=== PATIENT | male | born 1985 | race Caucasian/White ===

== ENCOUNTER 2020-08-30 02:07 | Emergency (ER) | payer MEDICAID ==
--- NOTE | 2020-08-30 03:00 | EDM.PDOCBH ---
<Cr Colón - Last Filed: 08/30/20 05:45> ED HPI GENERAL MEDICAL PROBLEM - General Chief Complaint: Behavioral/Psych Stated Complaint: EVAL Time Seen by Provider: 08/30/20 02:54 Source of Information: Reports: Patient History Limitations: Reports: No Limitations - History of Present Illness INITIAL COMMENTS - FREE TEXT/NARRATIVE: Fransico is a 34-year-old male presenting to the emergency room for evaluation of increased psychosis, paranoia, and agitation. The patient has a history significant for autism spectrum, polysubstance abuse including heroin, methamphetamine, and benzodiazepine. He is currently medicated with BuSpar, Effexor, clonidine, Metformin, and mirtazapine. The patient has delusions that his house is occupied by somebody who is cooking methamphetamine and that they are living in a hidden section in his wall of his house. It seems like the patient is semi-estranged from his parents due to his mental health and previous transgressions with polysubstance abuse. Tonight the patient called law enforcement because he felt that the people staying in his house were trying to frame him. Law enforcement product development intern arrested the patient in brought him to long-term, however, the long-term refused to take him saying that this was likely a mental health issue and the patient was ultimately brought to the ER for evaluation. The patient was accompanied by law enforcement from [place]. Law enforcement reported to us that prior to arresting the patient, the patient was wandering around the streets of [place]. The patient states that he was at his house outside and that his dog was barking because of the people that are hiding out in his house cooking meth. Patient is very paranoid that they were going to frame him for manufacture methamphetamine because these people will place their equipment in his room to make it look like he is doing it. The patient has significant agitation, fidgeting, hand rolling, tangential speech with pressured rapid speech and profuse sweating. He also has increased rhinorrhea. The patient is here voluntary for evaluation. The patient does admit to using methamphetamine 3 days ago. He does admit to having a history of abusing marijuana, heroin, methamphetamine, and benzodiazepines. Again, patient does have a history for type 2 diabetes and autism spectrum. - Related Data Allergies Allergy/AdvReac Type Severity Reaction Status Date / Time Penicillins Allergy Cannot Verified 08/30/20 03:01 Remember [id number]-[id number] Reductase Allergy Cannot Verified 08/30/20 03:01 Inhibitor Remember Home Meds: Home Meds Mirtazapine 45 mg PO BEDTIME 08/30/20 [History] Venlafaxine [Effexor] 200 mg PO DAILY 08/30/20 [History] cloNIDine [Catapres] 0.2 mg PO BID 08/30/20 [History] metFORMIN [Glucophage] 1,000 mg PO WITHDINNER 08/30/20 [History] metFORMIN [Glucophage] 500 mg PO DAILY 08/30/20 [History] Social & Family History - Recreational Drug Use Recreational Drug Use: Yes Drug Use in Last 12 Months: Yes Recreational Drug Type: Reports: Heroin, Marijuana/Hashish, Methamphetamine ED ROS GENERAL - Review of Systems Review Of Systems: See Below Constitutional: Reports: No Symptoms HEENT: Reports: No Symptoms Respiratory: Reports: No Symptoms Cardiovascular: Reports: No Symptoms Endocrine: Reports: No Symptoms GI/Abdominal: Reports: No Symptoms : Reports: No Symptoms Musculoskeletal: Reports: No Symptoms Skin: Reports: No Symptoms Neurological: Reports: No Symptoms Psychiatric: Reports: Agitation, Anxiety, Mood Lability, Other (Rapid pressured speech, tangential thought, flight of ideas, guanaco, possible delusional thinking .) Hematologic/Lymphatic: Reports: No Symptoms Immunologic: Reports: No Symptoms ED EXAM, BEHAVIORAL HEALTH - Physical Exam Exam: See Below Exam Limited By: No Limitations General Appearance: Alert, WD/WN, Anxious, Mild Distress Eye Exam: Bilateral Eye: PERRL, Other (Poor eye contact) Throat/Mouth: Normal Inspection, Normal Lips, Normal Teeth, Normal Gums, Normal Oropharynx, Normal Voice, No Airway Compromise Head: Atraumatic, Normocephalic Neck: Normal Inspection, Supple, Non-Tender, Full Range of Motion Respiratory/Chest: No Respiratory Distress, Lungs Clear, Normal Breath Sounds, No Accessory Muscle Use, Chest Non-Tender Cardiovascular: Normal Peripheral Pulses, Regular Rate, Rhythm, No JVD, No Murmur GI/Abdominal: Normal Bowel Sounds, Non-Tender Extremities: Normal Inspection, Normal Range of Motion, Non-Tender Neurological: Alert, CN II-XII Intact, Normal Gait, No Motor/Sensory Deficits, Oriented x 3 Psychiatric: Alert, Restless, Agitated, Inattentive, Poor Eye Contact, Flight of Ideas, Tangential Thoughts, Auditory Hallucinations (Possibly, patient comments that he hears whispering in his house like somebody is living in his reddy.), Visual Hallucinations (Possibly, the patient comments that sometimes he sees people in his house but then when he seeks them out he cannot find him.), Pressured Speech, Paranoid Thoughts (Patient is very paranoid that somebody is cooking methamphetamine in his house and living in a secret compartment between his reddy. He is paranoid that they are going to frame him for cooking methamphetamine. He is also paranoid that his family is using his autism against him making him more paranoid and having more psychoses.). No: Homicidal Thoughts, Suicidal Thoughts Skin Exam: Warm, Dry, Intact, Normal color, No rash COURSE, BEHAVIORAL HEALTH COMP - Course Medical Clearance: 08/30/20 05:46 Fransico appears to be under the influence of amphetamines, methamphetamines, MDMA, and THC. The patient has been cooperative and is now resting after receiving lorazepam 2 mg p.o. and haloperidol 5 mg p.o. Because of the acute intoxication on multiple medications, we will have to wait until morning before the patient can be assessed by the psychiatry crisis team. 08/30/20 06:47 care of the patient will be turned over to the oncDr. Agustin givens at 0700 hours, change of shift while awaiting for the patient to be assessed by [facility] Behavioral Health Crisis Team. The patient is here voluntarily and is not homicidal or suicidal, but is psychotic. He is currently not on a hold. Departure - Departure Disposition: Home, Self-Care 01 Condition: Fair Clinical Impression: Autism spectrum, Acute exacerbation of psychosis, Polysubstance abuse, Auditory hallucinations, Visual hallucinations, Paranoia (psychosis) - Discharge Information *PRESCRIPTION DRUG MONITORING PROGRAM REVIEWED*: No *COPY OF PRESCRIPTION DRUG MONITORING REPORT IN PATIENT [place]: No Referrals: Sunny Manzo MD [Primary Care Provider] - Forms: ED Department Discharge Additional Instructions: We recommend that you seek treatment for your mental health and substance use, you have been provided resources for this. Sepsis Event Note (ED) - Evaluation Sepsis Screening Result: No Definite Risk <Bladimir Velez - Last Filed: 08/30/20 11:25> COURSE, BEHAVIORAL HEALTH COMP - Course Vital Signs: Last Vital Signs Temp 35.9 C L 08/30/20 02:33 Pulse 101 H 08/30/20 02:33 Resp 19 08/30/20 02:33 BP 146/84 H 08/30/20 02:33 Pulse Ox 94 L 08/30/20 02:33 Orders, Labs, Meds: Laboratory Tests 08/30/20 08/30/20 08/30/20 Range/Units 02:29 02:29 02:29 WBC 15.1 H (4.5-11.0) K/uL RBC 4.95 (4.30-5.90) M/uL Hgb 14.9 (12.0-15.0) g/dL Hct 44.2 (40.0-54.0) % MCV 89 (80-98) fL MCH 30 (27-31) pg MCHC 34 (32-36) % Plt Count 311 (150-400) K/uL Neut % (Auto) 74 H (36-66) % Lymph % (Auto) 17 L (24-44) % [place] % (Auto) 7 H (2-6) % Eos % (Auto) 1 L (2-4) % Baso % (Auto) 0 (0-1) % Sodium 138 L (140-148) mmol/L Potassium 3.9 (3.6-5.2) mmol/L Chloride 102 (100-108) mmol/L Carbon Dioxide 20 L (21-32) mmol/L Anion Gap 19.9 H (5.0-14.0) mmol/L BUN 20 H (7-18) mg/dL Creatinine 0.9 (0.8-1.3) mg/dL Est Cr Clr Drug Dosing 122.01 mL/min Estimated GFR (MDRD) > 60 (>60) Glucose 82 (74-106) mg/dL Calcium 9.3 (8.5-10.1) mg/dL Total Bilirubin 0.6 (0.2-1.0) mg/dL AST 37 (15-37) U/L ALT 33 (12-78) U/L Alkaline Phosphatase 82 (46-116) U/L Total Protein 8.2 (6.4-8.2) g/dL Albumin 4.2 (3.4-5.0) g/dL Globulin 4.0 H (2.3-3.5) g/dL Albumin/Globulin Ratio 1.1 L (1.2-2.2) Urine Color (YELLOW) Urine Appearance (CLEAR) Urine pH (5.0-8.0) Ur Specific [place] (1.008-1.030) Urine Protein (NEGATIVE) mg/dL Urine Glucose (UA) (NEGATIVE) mg/dL Urine Ketones (NEGATIVE) mg/dL Urine Occult Blood (NEGATIVE) Urine Nitrite (NEGATIVE) Urine Bilirubin (NEGATIVE) Urine Urobilinogen (0.2-1.0) EU/dL Ur Leukocyte Esterase (NEGATIVE) Urine RBC (0-5) Urine WBC (0-5) Ur Epithelial Cells Amorphous Sediment Urine Bacteria Urine Mucus Urine Opiates Screen (NEGATIVE) Ur Oxycodone Screen (NEGATIVE) Urine Methadone Screen (NEGATIVE) Ur Propoxyphene Screen (NEGATIVE) Ur Barbiturates Screen (NEGATIVE) Ur Tricyclics Screen (NEGATIVE) Ur Phencyclidine Scrn (NEGATIVE) Ur Amphetamine Screen (NEGATIVE) U Methamphetamines Scrn (NEGATIVE) Urine MDMA Screen (NEGATIVE) U Benzodiazepines Scrn (NEGATIVE) U Cocaine Metab Screen (NEGATIVE) U Marijuana (THC) Screen (NEGATIVE) Ethyl Alcohol < 3 mg/dL 08/30/20 08/30/20 Range/Units 03:59 03:59 WBC (4.5-11.0) K/uL RBC (4.30-5.90) M/uL Hgb (12.0-15.0) g/dL Hct (40.0-54.0) % MCV (80-98) fL MCH (27-31) pg MCHC (32-36) % Plt Count (150-400) K/uL Neut % (Auto) (36-66) % Lymph % (Auto) (24-44) % [place] % (Auto) (2-6) % Eos % (Auto) (2-4) % Baso % (Auto) (0-1) % Sodium (140-148) mmol/L Potassium (3.6-5.2) mmol/L Chloride (100-108) mmol/L Carbon Dioxide (21-32) mmol/L Anion Gap (5.0-14.0) mmol/L BUN (7-18) mg/dL Creatinine (0.8-1.3) mg/dL Est Cr Clr Drug Dosing mL/min Estimated GFR (MDRD) (>60) Glucose (74-106) mg/dL Calcium (8.5-10.1) mg/dL Total Bilirubin (0.2-1.0) mg/dL AST (15-37) U/L ALT (12-78) U/L Alkaline Phosphatase (46-116) U/L Total Protein (6.4-8.2) g/dL Albumin (3.4-5.0) g/dL Globulin (2.3-3.5) g/dL Albumin/Globulin Ratio (1.2-2.2) Urine Color Yellow (YELLOW) Urine Appearance Clear (CLEAR) Urine pH 6.0 (5.0-8.0) Ur Specific [place] >= 1.030 (1.008-1.030) Urine Protein Negative (NEGATIVE) mg/dL Urine Glucose (UA) Negative (NEGATIVE) mg/dL Urine Ketones Negative (NEGATIVE) mg/dL Urine Occult Blood Negative (NEGATIVE) Urine Nitrite Negative (NEGATIVE) Urine Bilirubin Negative (NEGATIVE) Urine Urobilinogen 0.2 (0.2-1.0) EU/dL Ur Leukocyte Esterase Negative (NEGATIVE) Urine RBC 0-5 (0-5) Urine WBC 0-5 (0-5) Ur Epithelial Cells Rare Amorphous Sediment Few Urine Bacteria Few Urine Mucus Few Urine Opiates Screen Negative (NEGATIVE) Ur Oxycodone Screen Negative (NEGATIVE) Urine Methadone Screen Negative (NEGATIVE) Ur Propoxyphene Screen Negative (NEGATIVE) Ur Barbiturates Screen Negative (NEGATIVE) Ur Tricyclics Screen Negative (NEGATIVE) Ur Phencyclidine Scrn Negative (NEGATIVE) Ur Amphetamine Screen Presumptive positive H (NEGATIVE) U Methamphetamines Scrn Presumptive positive H (NEGATIVE) Urine MDMA Screen Presumptive positive H (NEGATIVE) U Benzodiazepines Scrn Negative (NEGATIVE) U Cocaine Metab Screen Negative (NEGATIVE) U Marijuana (THC) Screen Presumptive positive H (NEGATIVE) Ethyl Alcohol mg/dL Medications Discontinued Medications Generic Name Dose Route Start Last Admin Trade Name Freq PRN Reason Stop Dose Admin Haloperidol 5 mg 08/30/20 04:25 08/30/20 04:35 Haldol PO 08/30/20 04:26 5 mg ONETIME ONE Administration Lorazepam 2 mg 08/30/20 03:05 08/30/20 03:29 Ativan PO 08/30/20 03:06 2 mg ONETIME ONE Administration Discharge vs Psych Eval/Treatment:: I received this patient in sign out at the beginning of my shift. After a period of observation to metabolize the drugs he had used earlier in the evening, he was seen be crisis team. He refused to participate in their exam. He has been ambulatory around the ER. I asked him if we could offer him mental health resources and he has declined this and wishes to leave. Per the exam of Dr Colón he has no SI, HI, or obvious threat to self. drug abuse worker, although able to only complete limited eval due to him being non-participatory, reports the same. He wishes to leave and is not holdable. He was provided without outpatient MH and substance abuse treatment information then discharged, a friend or family member is coming to pick him up. 08/30/20 11:19 Departure - Departure Time of Disposition: 11:17 Sepsis Event Note (ED) - Focused Exam Vital Signs: Vital Signs Temp Pulse Resp BP Pulse Ox 08/30/20 02:33 35.9 C L 101 H 19 146/84 H 94 L 08/30/20 02:32 35.9 C L 101 H 19 146/84 H 94 L
[2020-08-30] MEDS ORDERED: LORazepam 1 MG Tab PO ONE (03:05)
[2020-08-30] MEDS ORDERED: Haloperidol 5 MG Tab PO ONE (04:25)
== END 2020-08-30 12:45 | disposition home or self-care (01) ==
LOC: JP.ED 02:07 → EDBD 02:07 → JP.ED 12:45
DX: F22 Delusional disorders (principal); F84.0 Autistic disorder; F19.10 Other psychoactive substance abuse, uncomplicated; Z88.0 Allergy status to penicillin; Z88.8 Allergy status to other drugs, medicaments and biological substances; Z79.899 Other long term (current) drug therapy
CPT/HCPCS: 36415; 80053; 80305-QW; 80307; 81001; 85025; 99285; A9270-GY